=== PATIENT | female | born 1955 | race American Indian/Alaskan Native ===

== ENCOUNTER 2018-12-02 18:49 | Emergency (ER) | payer SELFPAY ==
[2018-12-02 19:53] VITALS: BP 151/61
--- NOTE | 2018-12-02 20:02 | Event Note ---
ED Screening Note Date of service: 12/02/18 Time: 20:00 ED Screening Note: 63 Y O FEMALE PRESENTS WITH MID UPPER CHEST WALL PAIN X YESTERDAY staes did some heavy lifting This initial assessment/diagnostic orders/clinical plan/treatment(s) is/are subject to change based on patients health status, clinical progression and re- assessment by fellow clinical providers in the ED. Further treatment and workup at subsequent clinical providers discretion. Patient/guardian urged not to elope from the ED as their condition may be serious if not clinically assessed and managed. Initial orders include: cxr
[2018-12-02] MEDS ORDERED: TYLENOL PO ONE (21:10)
[2018-12-02] MEDS ORDERED: ASPIRIN PO ONE (21:10)
--- NOTE | 2018-12-02 21:34 | XRay Report ---
CHEST PA AND LATERAL VIEWS INDICATION: chest pain. COMPARISON: None FINDINGS: Lungs/Pleura: Heart size and pulmonary vascularity are normal. Lungs are fully expanded and clear. IMPRESSION: 1. Negative study. Signer Name: Ha Fitzgerald MD Signed: 12/02/2018 9:29 PM Workstation Name: [id number]
[2018-12-02 21:45] LABS: Basophils # (Auto) 0.1 K/mm3 (0.0-0.1); Basophils % (Auto) 1.4 % (0.0-1.8); Eosinophils # (Auto) 0.1 K/mm3 (0.0-0.4); Eosinophils % (Auto) 1.2 % (0.0-4.3); Hematocrit 41.1 % (30.3-42.9); Hemoglobin 13.5 gm/dl (10.1-14.3); Lymphocytes % (Auto) 36.2 % (13.4-35.0); Mean Corpuscular HGB Conc 33 % (30-34); Mean Corpuscular Volume 89 fl (79-97); Monocytes % (Auto) 8.9 % (0.0-7.3); Platelet Count 260 K/mm3 (140-440); Red Blood Count 4.64 M/mm3 (3.65-5.03)
[2018-12-02 22:07] LABS: Alanine Aminotransferase 13 units/L (7-56); Albumin 4.1 g/dL (3.9-5); BUN/Creatinine Ratio 25; Blood Urea Nitrogen 20 mg/dL (7-17); Calcium 9.6 mg/dL (8.4-10.2); Hemolysis Index 9
--- NOTE | 2018-12-02 22:20 | Emergency Department Report ---
ED General Adult HPI - General Chief complaint: Chest Pain Stated complaint: SWELING IN CHEST AREA Time Seen by Provider: 12/02/18 20:00 Source: patient Mode of arrival: Ambulatory Limitations: No Limitations - History of Present Illness Initial comments: Patient is a 63-year-old -[place] female with a history of hypertension and [id number] diabetes who presents to the ED with c/o acute onset persistent anterior chest wall pain after heavy lifting repeatedly for last 2 days. Patient states that the pain is worse with any physical activity or range of motion of upper extremities, chest wall palpation or deep inhalation. Patient denies hemoptysis, cough, shortness of breath, dizziness, nausea, vomiting, abdominal pain, fall, traumatic injury, neck pain or headache, diaphoresis or change in vision and palpitations. MD Complaint: chest wall pain -: Sudden, days(s) (2) Location: chest (anterior) Radiation: non-radiation Severity scale (0 -10): 7 Quality: aching, sharp Consistency: constant Improves with: none Worsens with: movement, other (palpation) Associated Symptoms: denies other symptoms, chest pain (anterior). denies: confusion, cough, diaphoresis, fever/chills, headaches, loss of appetite, malaise, nausea/vomiting, rash, seizure, shortness of breath, syncope, weakness, other Treatments Prior to Arrival: none - Related Data Previous Rx's Medication Instructions Recorded Last Taken Type Cyclobenzaprine HCl [Flexeril 5 MG 5 mg PO QHS PRN #12 tab 12/02/18 Unknown Rx TAB] Naproxen [Naprosyn] 500 mg PO Q12H PRN #20 tablet 12/02/18 Unknown Rx Allergies Allergy/AdvReac Type Severity Reaction Status Date / Time No Known Allergies Allergy Unverified 12/02/18 18:57 ED Review of Systems ROS: Stated complaint: SWELING IN CHEST AREA Other details as noted in HPI Constitutional: denies: chills, fever Eyes: denies: eye pain, eye discharge, vision change ENT: denies: ear pain, throat pain Respiratory: denies: cough, shortness of breath, wheezing Cardiovascular: chest pain (anterior chest wall pain). denies: palpitations, edema, syncope, paroxysmal nocturnal dyspnea Endocrine: no symptoms reported Gastrointestinal: denies: abdominal pain, nausea, diarrhea Genitourinary: denies: urgency, dysuria, discharge Musculoskeletal: denies: back pain, joint swelling, arthralgia Skin: denies: rash, lesions Neurological: denies: headache, weakness, paresthesias Psychiatric: denies: anxiety, depression Hematological/Lymphatic: denies: easy bleeding, easy bruising ED Past Medical Hx - Past Medical History Previous Medical History?: Yes Hx Hypertension: Yes Hx Diabetes: Yes - Surgical History Past Surgical History?: No - Social History Smoking Status: Current Every Day Smoker Substance Use Type: None - Medications Home Medications: Home Medications Medication Instructions Recorded Confirmed Last Taken Type Cyclobenzaprine HCl [Flexeril 5 MG 5 mg PO QHS PRN #12 tab 12/02/18 Unknown Rx TAB] Naproxen [Naprosyn] 500 mg PO Q12H PRN #20 tablet 12/02/18 Unknown Rx ED Physical Exam - General Limitations: No Limitations General appearance: alert, in no apparent distress - Head Head exam: Present: atraumatic, normocephalic, normal inspection - Eye Eye exam: Present: normal appearance, PERRL, EOMI Pupils: Present: normal accommodation - ENT ENT exam: Present: normal exam, normal orophraynx, mucous membranes moist, TM's normal bilaterally, normal external ear exam - Neck Neck exam: Present: normal inspection. Absent: tenderness, meningismus, lymphadenopathy, thyromegaly - Respiratory Respiratory exam: Present: normal lung sounds bilaterally, chest wall tenderness (anterior), other (Reproducible anterior chest wall tenderness to palpation). Absent: respiratory distress, wheezes, rales, stridor, accessory muscle use, decreased breath sounds, prolonged expiratory - Cardiovascular Cardiovascular Exam: Present: regular rate, normal rhythm. Absent: systolic murmur, diastolic murmur, rubs, gallop - GI/Abdominal GI/Abdominal exam: Present: soft, normal bowel sounds. Absent: distended, tenderness, hyperactive bowel sounds, hypoactive bowel sounds, organomegaly - Rectal Rectal exam: Present: deferred - Extremities Exam Extremities exam: Present: normal inspection, full ROM, normal capillary refill - Back Exam Back exam: Present: normal inspection, full ROM. Absent: tenderness, CVA tenderness (R), CVA tenderness (L), muscle spasm, paraspinal tenderness - Neurological Exam Neurological exam: Present: alert, oriented X3, CN II-XII intact, normal gait, reflexes normal - Psychiatric Psychiatric exam: Present: normal affect, normal mood - Skin Skin exam: Present: warm, dry, intact, normal color. Absent: rash ED Course Vital Signs 12/02/18 12/02/18 12/02/18 19:52 19:59 21:50 Temperature 98.7 F 98.7 F Pulse Rate 70 70 Respiratory 20 18 16 Rate Blood Pressure 151/61 Blood Pressure 151/61 [Right] O2 Sat by Pulse 99 99 Oximetry - Reevaluation(s) Reevaluation #1: 12/02/18 22:21 This is a 63-year-old female who presented to the ED with anterior chest pain after heavy lifting 2 days ago. In the ED, patient is alert and oriented 3 and is not in any distress. EKG shows a normal sinus rhythm with ventricular rate of [address] or T-wave abnormalities. Lab tests results are nonactionable including troponin level. Chest x-ray shows no acute cardiopulmonary abnormalities or pneumothorax, rib fractures. Patient was treated for pain in the ED and on reevaluation, the patient's pain is well- controlled and medications. Patient was discharged home on pain medications and advised to follow-up with her primary care physician in 7-10 days for reevaluation or return to the ED immediately if symptoms get worse. ED Medical Decision Making - Lab Data Result diagrams: 12/02/18 21:26 12/02/18 21:26 - EKG Data EKG shows normal: sinus rhythm - EKG Data Interpretation: normal EKG 12/02/18 22:23 Normal sinus rhythm, ventricular rate of 71 bpm, no ST or T-wave abnormalities - Radiology Data Radiology results: report reviewed, image reviewed Chest x-ray shows no acute cardiopulmonary abnormalities, pneumothorax or rib fractures - Medical Decision Making This is a 63-year-old female who presented to the ED with anterior chest pain after heavy lifting 2 days ago. In the ED, patient is alert and oriented 3 and is not in any distress. EKG shows a normal sinus rhythm with ventricular rate of [address] or T-wave abnormalities. Lab tests results are nonactionable including troponin level. Chest x-ray shows no acute cardiopulmonary abnormalities or pneumothorax, rib fractures. Patient was treated for pain in the ED and on reevaluation, the patient's pain is well- controlled and medications. Patient was discharged home on pain medications and advised to follow-up with her primary care physician in 7-10 days for reevaluation or return to the ED immediately if symptoms get worse. - Differential Diagnosis Costochondritis; Chest wall muscle strain; fractured ribs Critical care attestation.: If time is entered above; I have spent that time in minutes in the direct care of this critically ill patient, excluding procedure time. ED Disposition Clinical Impression: Anterior chest wall pain, Acute costochondritis Disposition: TO HOME OR SELFCARE Is pt being admited?: No Does the pt Need Aspirin: No Condition: Stable Instructions: Chest Pain (ED), Costochondritis (ED), Muscle Strain (ED) Additional Instructions: Take medications as needed with food, drink plenty of fluids and follow-up with your primary care physician in 7-10 days for reevaluation or return to the ED immediately if symptoms get worse. Prescriptions: Cyclobenzaprine HCl [Flexeril 5 MG TAB] 5 mg PO QHS PRN #12 tab PRN Reason: Muscle Spasm Naproxen [Naprosyn] 500 mg PO Q12H PRN #20 tablet PRN Reason: Pain , Severe (7-10) Referrals: PRIMARY CARE, [Primary Care Provider] - 3-5 Days Time of Disposition: 22:18 Print Language: LAO
== END 2018-12-02 22:50 | disposition home or self-care (01) ==
LOC: ED 18:49
DX: M94.0 Chondrocostal junction syndrome [Tietze] (principal); I10 Essential (primary) hypertension; E11.9 Type 2 diabetes mellitus without complications; F17.200 Nicotine dependence, unspecified, uncomplicated; Z79.4 Long term (current) use of insulin; Z79.899 Other long term (current) drug therapy
CPT/HCPCS: 36415; 71046; 80053; 84484; 85025; 93005; 93010; 99284